=== PATIENT | male | born 1985 | race Caucasian/White ===

== ENCOUNTER 2019-01-28 12:12 | Day surgery (SDC) | payer OTHER ==
[~2019-01-28] VITALS: Ht 167.6 cm; Wt 84.3 kg
[2019-01-28 14:00] VITALS: Ht 167.6 cm; Wt 84.3 kg
[2019-01-28 14:39] VITALS: BP 124/75; PULSE 82; RESP 16
[2019-01-28] MEDS ORDERED: PROPOFOL 60 ML ONE (17:04)
[2019-01-28] MEDS ORDERED: LIDOCAINE 2% (SDV) 5 ML INJ ONE (17:04)
--- NOTE | 2019-01-28 17:04 | PREAC ---
Date/Time of Note Date/Time of Note DATE: 01/28/19 TIME: 17:02 Anesthesia Eval and Record Evaluation Time Pre-Procedure Interview DATE: 01/28/19 TIME: 17:02 Age 33 Sex male NPO: 8 hrs Preoperative diagnosis Lower GI bleeding Planned procedure Colonoscopy Past Medical History Past Medical History: Includes GI: Obesity Heme: Anemia Surgery & Anesthesia Issues No known issue Meds Anticoagulation: No Beta Joy within 24 hr: No Reason Beta Joy not given: Pt. not on B-Joy Reported Medications [none] No Conflict Check 01/28/19 Meds reviewed: Yes Allergies Coded Allergies: No Known Allergy (Unverified , 01/28/19) Allergies Reviewed: Yes Labs/Studies Labs Reviewed: Reviewed by anesthesiologist test: N/A Studies: ECG Pre-procedure Exam Last vitals Vital Signs Date Temp Pulse Resp B/P (MAP) Pulse Ox O2 O2 Flow FiO2 Time Delivery Rate 01/28/19 98.7 82 16 124/75 99 Room Air 14:39 (91) Airway: Adequate mouth opening, Adequate thyromental dist Mallampati: Mallampati II Teeth: Normal Lung: Normal Heart: Normal ASA Physical Status ASA physical status: 2 Emergency: None Planned Anesthetic General/MAC: MAC Planned Pain Management Parenteral pain med Pre-operative Attestations Prior to commencing anesthesia and surgery, the patient was re-evaluated, there was verification of: *The patient's identity *The results of appropriate recent lab work and preoperative vital signs *The above evaluation not changing prior to induction *Anesthetic plan, risk benefits, alternative and complications discussed with patient/family; questions answered; patient/family understands, accepts and wishes to proceed. THELMA CALZADA MD Jan 28, 2019 17:04
--- NOTE | 2019-01-28 17:33 | PAC ---
Date/Time of Note Date/Time of Note DATE: 01/28/19 TIME: 17:32 Post-Anesthesia Notes Post-Anesthesia Note Last documented vital signs Vital Signs Date Temp Pulse Resp B/P (MAP) Pulse Ox O2 O2 Flow FiO2 Time Delivery Rate 01/28/19 98.7 82 16 124/75 99 Room Air 14:39 (91) Activity: WNL Respiratory function: WNL Cardiovascular function: WNL Mental status: Baseline Pain reasonably controlled: Yes Hydration appropriate: Yes Nausea/Vomiting absent: Yes Comments BP:112/56, P:88, Spo2:100%, T:98,8 THELMA CALZADA MD Jan 28, 2019 17:33
[2019-01-28 17:56] VITALS: BP 132/80; PULSE 76; RESP 20
== END 2019-01-28 18:46 | disposition home or self-care (01) ==
LOC: GIL 12:12
PROVIDERS: ATTEND Internal Medicine Gastroenterology
DX: K64.8 Other hemorrhoids (principal); K92.1 Melena
CPT/HCPCS: 45380; 88305; Z7610